=== PATIENT | female | born 1990 | race Caucasian/White ===

== ENCOUNTER 2019-08-15 14:07 | Emergency (ER) | payer OTHER, MEDICAID, SELFPAY ==
[2019-08-15 14:12] VITALS: BP 141/55; PULSE 77; RESP 15; TEMP 36.5; O2SAT 100; BMI 24.7
--- NOTE | 2019-08-15 14:32 | ED_ITS ---
HPI - Nausea/Vomiting/Diarrhea <VALARIE Dodd - Last Filed: 08/15/19 20:09> General Chief complaint: Nausea/Vomiting/Diarrhea Stated complaint: GI issues Time Seen by Provider: 08/15/19 14:11 Source: patient Mode of arrival: Ambulatory Limitations: no limitations History of Present Illness HPI Narrative: 29-year-old female with a history of anxiety in sports induced asthma, presents emergency department today complaining of intermittent abdominal cramping, loose watery stool, nausea, and acid reflux for the past 3 weeks. 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 She states she has anywhere from 2-9 episodes of stools a day that are watery and yellow. She denies any blood or mucus in her stools. She states she has been nauseated but has not vomited, her nausea increases after eating and her heartburn increases after e ating. Patient states she was on antibiotics 8 weeks ago for a urinary tract infection and she completed the course, she was on Bactrim, she did not have any problems with her stools after she finished a course of antibiotics. She states when she wakes up in the morning she feels short of breath for an hour or so and feels like this is contributed to postnasal drip that she still has from her URI a few weeks ago. Patient denies any abdominal pain, fevers, chills, chest pain, cough, dizziness, dysuria, vaginal discharge, or other concerns. Related Data Previous Rx's Medication Instructions Recorded metronidazole [Flagyl] 500 mg PO BID 5 Days #10 tab 08/15/19 Allergies Allergy/AdvReac Type Severity Reaction Status Date / Time No Known Drug Allergies Allergy Verified 08/15/19 14:16 Review of Systems <VALARIE Dodd - Last Filed: 08/15/19 20:09> Review of Systems Narrative: REVIEW OF SYSTEMS: GENERAL: Denies fever, chills, malaise, or wt. loss. HENT: No head trauma, sore throat, or dysphagia. EYES: No loss of vision, double vision, eye pain, or irritation. CARDIOVASCULAR: No chest pain, palpitations, or orthopnea. RESPIRATORY: No shortness of breath or cough. GASTROINTESTINAL: Complains of diarrhea, see HPI. GENITOURINARY: No flank pain, urinary incontinence, hesitancy, frequency, or dysuria. No vaginal discharge or dyspareunia. Denies concerns for STIs MUSCULOSKELETAL: No pain, weakness, or trauma. INTEGUMENTARY: No rash, lesions, or pruritus. NEURO: No numbness, tingling, memory loss, confusion, or headaches. PSYCH: No behavior or mood changes. Patient History <VALARIE Dodd - Last Filed: 08/15/19 20:09> Medical History Exercise-induced asthma (Acute) Social History Smoking Status: Unknown if ever smoked alcohol intake frequency: holidays/special occasions only Substance Use Type: does not use Exam <VALARIE Dodd - Last Filed: 08/15/19 20:09> Initial Vital Signs Initial Vital Signs: Vital Signs Temperature 97.7 F 08/15/19 14:12 Pulse Rate 77 08/15/19 14:12 Respiratory Rate 15 08/15/19 14:12 Blood Pressure 141/55 H 08/15/19 14:12 Pulse Oximetry 100 08/15/19 14:12 PHYSICAL EXAMINATION: GENERAL: Well groomed, alert, and cooperative. Answers questions promptly and appropriately. Vital signs noted. HENT: Normocephalic, atraumatic. Hearing intact. Oral mucosa is pink and moist. EYES: Conjunctiva pink, sclera white, no periorbital swelling. CARDIOVASCULAR: S1 and S2 sounds normal. Regular rate and rhythm, no murmurs, clicks, or bruits. No pedal edema. RESPIRATORY: Normal respiratory rate, trachea midline, airway patent. No stridor, nasal flaring or accessory muscle use. Lower lung joyce with diffuse expiratory wheezes, this improved after administration of a Duoneb. No rhonchi or crackles. GASTROINTESTINAL: Bowel sounds normoactive. Abdomen is soft and non-tender. No organomegaly, no palpable masses. GENITALURINARY: No flank tenderness. MUSCULOSKELETAL: Normal gait and coordination. Equal tone and mass bilaterally. EXTREMITIES: CMS intact, no pedal edema. SKIN: Warm, dry, soft, appropriate color for ethnicity. No lesions, rashes, or wounds. NEURO: Alert and Oriented X 3. Good coordination. No ataxia, or sensory deficits, or cognitive issues. PSYCH: Appropriate affect and mood. <Francois Cisse DO - Last Filed: 08/21/19 07:23> Initial Vital Signs Initial Vital Signs: Vital Signs Temperature 97.7 F 08/15/19 14:12 Pulse Rate 77 08/15/19 14:12 Respiratory Rate 15 08/15/19 14:12 Blood Pressure 141/55 H 08/15/19 14:12 Pulse Oximetry 100 08/15/19 14:12 Course <Joyce BlairVALARIE stovall - Last Filed: 08/15/19 20:09> Course Course Narrative: Patient was given a DuoNeb for expiratory wheezes, she denies any change in symptoms. Patient was given Zofran, NS, and pantoprazole for nausea and GERD, she reports feeling better after administration of fluids. Orders Ordered: Discontinued Medications Albuterol/Ipratropium (Duoneb) 3 ml INH NOW ONE Stop: 08/15/19 14:44 Last Admin: 08/15/19 15:16 Dose: 3 ml Documented by: FAUSTO Sodium Chloride (Normal Saline 0.9%) 1,000 mls @ 1,000 mls/hr IV BOLUS ONE Stop: 08/15/19 16:15 Last Infusion: 08/15/19 16:35 Dose: 0 mls/hr Documented by: Admin: 08/15/19 15:21 Dose: 1,000 mls/hr Documented by: FAUSTO Metronidazole (Metronidazole) 500 mg PO NOW ONE Stop: 08/15/19 18:20 Last Admin: 08/15/19 18:26 Dose: 500 mg Documented by: FAUSTO Ondansetron HCl (Zofran) 4 mg IV NOW ONE Stop: 08/15/19 14:34 Last Admin: 08/15/19 15:14 Dose: 4 mg Documented by: FAUSTO Pantoprazole Sodium (Protonix) 40 mg IV NOW ONE Stop: 08/15/19 14:34 Last Admin: 08/15/19 15:16 Dose: 40 mg Documented by: FAUSTO Consultations Consultation #1: Patient staffed with Dr. Cisse. Vital Signs Vital signs: Vital Signs - 8 hr 08/15/19 14:12 08/15/19 16:13 08/15/19 17:00 Temperature 97.7 F Pulse Rate 77 68 77 Respiratory Rate 15 16 16 Blood Pressure 141/55 H Blood Pressure [Left Arm] 166/67 H 128/78 Pulse Oximetry 100 99 98 08/15/19 18:00 08/15/19 18:52 Temperature Pulse Rate 65 67 Respiratory Rate 15 17 Blood Pressure 121/82 Blood Pressure [Left Arm] 132/76 Pulse Oximetry 99 99 <Francois Cisse DO - Last Filed: 08/21/19 07:23> Orders Ordered: Discontinued Medications Albuterol/Ipratropium (Duoneb) 3 ml INH NOW ONE Stop: 08/15/19 14:44 Last Admin: 08/15/19 15:16 Dose: 3 ml Documented by: FAUSTO Sodium Chloride (Normal Saline 0.9%) 1,000 mls @ 1,000 mls/hr IV BOLUS ONE Stop: 08/15/19 16:15 Last Infusion: 08/15/19 16:35 Dose: 0 mls/hr Documented by: Admin: 08/15/19 15:21 Dose: 1,000 mls/hr Documented by: FAUSTO Metronidazole (Metronidazole) 500 mg PO NOW ONE Stop: 08/15/19 18:20 Last Admin: 08/15/19 18:26 Dose: 500 mg Documented by: FAUSTO Ondansetron HCl (Zofran) 4 mg IV NOW ONE Stop: 08/15/19 14:34 Last Admin: 08/15/19 15:14 Dose: 4 mg Documented by: FAUSTO Pantoprazole Sodium (Protonix) 40 mg IV NOW ONE Stop: 08/15/19 14:34 Last Admin: 08/15/19 15:16 Dose: 40 mg Documented by: FAUSTO Vital Signs Vital signs: Vital Signs - 8 hr 08/15/19 14:12 08/15/19 16:13 08/15/19 17:00 Temperature 97.7 F Pulse Rate 77 68 77 Respiratory Rate 15 16 16 Blood Pressure 141/55 H Blood Pressure [Left Arm] 166/67 H 128/78 Pulse Oximetry 100 99 98 08/15/19 18:00 08/15/19 18:52 Temperature Pulse Rate 65 67 Respiratory Rate 15 17 Blood Pressure 121/82 Blood Pressure [Left Arm] 132/76 Pulse Oximetry 99 99 MDM - Nausea/Vomiting/Diarrhea <Joyce VALARIE Sanchez - Last Filed: 08/15/19 20:09> Medical Records Attestation: I reviewed the patient's medical records. Lab Data Attestation: I reviewed the patient's lab results. Result diagrams: 08/15/19 14:55 08/15/19 14:55 Labs: Lab Results 08/15/19 08/15/19 08/15/19 Range/Units 14:55 14:55 15:05 WBC 7.6 (4.5-11.0) X10^3/uL RBC 4.56 (4.0-5.2) X10^6/uL Hgb 13.7 (12.0-16.0) g/dL Hct 39.6 (36-46) % MCV 86.8 (80-100) fL MCH 29.9 (26-34) PG MCHC 34.5 (30-36) % RDW 13.1 (11.6-14.8) % Plt Count 320 (150-400) X10^3/uL Neut % (Auto) 66.6 (50-75) % Lymph % (Auto) 23.0 L (25-40) % Madison % (Auto) 8.0 (3-14) % Eos % (Auto) 1.8 L (2-4) % Baso % (Auto) 0.6 (0-2) % Neut # (Auto) 5100 (0196-0901) /uL Lymph # (Auto) 1800 (8454-0270) /uL Madison # (Auto) 600 (0-900) /uL Eos # (Auto) 100 (0-450) /uL Baso # (Auto) 0 (0-100) /uL Sodium 140 (137-145) mmol/L Potassium 3.4 (3.4-5.1) mmol/L Chloride 106 (98-107) mmol/L Carbon Dioxide 27 (22-32) mmol/L BUN 8 (7-17) mg/dL Creatinine 0.70 (0.52-1.04) mg/dL Estimated GFR > 60.0 (>60) mL/min BUN/Creatinine Ratio 11.4 (6-22) Glucose 89 (70-100) mg/dL Calcium 9.0 (8.4-10.2) mg/dL Total Bilirubin 0.3 (0.2-1.3) mg/dL AST 27 (14-36) IU/L ALT 28 (<35) IU/L Alkaline Phosphatase 61 (38-126) U/L Total Protein 6.6 (6.3-8.2) g/dL Albumin 4.2 (3.5-5.0) g/dL Globulin 2.4 (1.7-4.1) g/dL Albumin/Globulin Ratio 1.8 (1.0-2.8) Stl C. cayetanensis PCR Not detected (Not Detect) Stool Rotavirus (PCR) Not detected (Not Detect) Stool Adenovirus (PCR) Not detected (Not Detect) Stool Astrovirus (PCR) Not detected (Not Detect) Stool Cryptosporidium PCR Not detected (Not Detect) Stl E.coli Shiga Tox PCR Not detected (Not Detect) St Sh/Enteroin Ecoli PCR Not detected (Not Detect) Stool E coli O157 PCR Not Reportable Stl Enterotoxigenic E PCR Not detected (Not Detect) Stool EPEC (PCR) Not detected (Not Detect) Stl E. histolytica PCR Not detected (Not Detect) Stool Giardia Lamblia PCR Detected H (Not Detect) Stool Sapovirus (PCR) Not detected (Not Detect) Stl P. shigelloides PCR Not detected (Not Detect) St Y.enterocolitica PCR Not detected (Not Detect) Stool Vibrio (PCR) Not detected (Not Detect) Stl Vibrio cholerae PCR Not detected (Not Detect) Stl Enteroaggr Ecoli PCR Not detected (Not Detect) Stl Norovirus GI/GII PCR Not detected (Not Detect) Campylobacter (PCR) Not detected (Not Detect) C. difficile Tox (PCR) Not detected (Not Detect) Salmonella (PCR) Not detected (Not Detect) Point of Care Testing Test Results Negative Urine Dip Bedside Urine Glucose Negative Bedside Urine Bilirubin - Negative Bedside Urine Ketone - Negative Urine Specific Walker 1.010 Bedside Urine Occult Blood - Negative Bedside Urine pH 6.0 Bedside Urine Protein - Negative Bedside Urine Urobilinogen - Negative Bedside Urine Nitrite - Negative Bedside Urine Leukocytes - Negative Esterase MDM Narrative Medical decision making narrative: 29-year-old female presents emergency department for diarrhea for the past few weeks, she test positive for Giardia. Laboratory work is non-remarkable, no concern of systemic infection due to lack of fevers, tachycardia, increased white blood cells, or other systemic symptoms. Less likely appendicitis, cholecystitis, or pancreatitis due to lack of abdominal pain or vomiting.. Patient was given a dose of Flagyl in the emergency department and prescription was faxed. She was counseled extensively about hand hygiene in the spread of gardia. She was given a note for work, and instructed to not return until diarrhea has resolved. She was encouraged to follow up with her primary care provider in the next few weeks for re-evaluat ion. Return precautions given for worsening symptoms. <Francois Hazelrosi, DO - Last Filed: 08/21/19 07:23> Lab Data Labs: Lab Results 08/15/19 08/15/19 08/15/19 Range/Units 14:55 14:55 15:05 WBC 7.6 (4.5-11.0) X10^3/uL RBC 4.56 (4.0-5.2) X10^6/uL Hgb 13.7 (12.0-16.0) g/dL Hct 39.6 (36-46) % MCV 86.8 (80-100) fL MCH 29.9 (26-34) PG MCHC 34.5 (30-36) % RDW 13.1 (11.6-14.8) % Plt Count 320 (150-400) X10^3/uL Neut % (Auto) 66.6 (50-75) % Lymph % (Auto) 23.0 L (25-40) % Madison % (Auto) 8.0 (3-14) % Eos % (Auto) 1.8 L (2-4) % Baso % (Auto) 0.6 (0-2) % Neut # (Auto) 5100 (3232-2466) /uL Lymph # (Auto) 1800 (9197-8051) /uL Madison # (Auto) 600 (0-900) /uL Eos # (Auto) 100 (0-450) /uL Baso # (Auto) 0 (0-100) /uL Sodium 140 (137-145) mmol/L Potassium 3.4 (3.4-5.1) mmol/L Chloride 106 (98-107) mmol/L Carbon Dioxide 27 (22-32) mmol/L BUN 8 (7-17) mg/dL Creatinine 0.70 (0.52-1.04) mg/dL Estimated GFR > 60.0 (>60) mL/min BUN/Creatinine Ratio 11.4 (6-22) Glucose 89 (70-100) mg/dL Calcium 9.0 (8.4-10.2) mg/dL Total Bilirubin 0.3 (0.2-1.3) mg/dL AST 27 (14-36) IU/L ALT 28 (<35) IU/L Alkaline Phosphatase 61 (38-126) U/L Total Protein 6.6 (6.3-8.2) g/dL Albumin 4.2 (3.5-5.0) g/dL Globulin 2.4 (1.7-4.1) g/dL Albumin/Globulin Ratio 1.8 (1.0-2.8) Stl C. cayetanensis PCR Not detected (Not Detect) Stool Rotavirus (PCR) Not detected (Not Detect) Stool Adenovirus (PCR) Not detected (Not Detect) Stool Astrovirus (PCR) Not detected (Not Detect) Stool Cryptosporidium PCR Not detected (Not Detect) Stl E.coli Shiga Tox PCR Not detected (Not Detect) St Sh/Enteroin Ecoli PCR Not detected (Not Detect) Stool E coli O157 PCR Not Reportable Stl Enterotoxigenic E PCR Not detected (Not Detect) Stool EPEC (PCR) Not detected (Not Detect) Stl E. histolytica PCR Not detected (Not Detect) Stool Giardia Lamblia PCR Detected H (Not Detect) Stool Sapovirus (PCR) Not detected (Not Detect) Stl P. shigelloides PCR Not detected (Not Detect) St Y.enterocolitica PCR Not detected (Not Detect) Stool Vibrio (PCR) Not detected (Not Detect) Stl Vibrio cholerae PCR Not detected (Not Detect) Stl Enteroaggr Ecoli PCR Not detected (Not Detect) Stl Norovirus GI/GII PCR Not detected (Not Detect) Campylobacter (PCR) Not detected (Not Detect) C. difficile Tox (PCR) Not detected (Not Detect) Salmonella (PCR) Not detected (Not Detect) Point of Care Testing Test Results Negative Urine Dip Bedside Urine Glucose Negative Bedside Urine Bilirubin - Negative Bedside Urine Ketone - Negative Urine Specific Walker 1.010 Bedside Urine Occult Blood - Negative Bedside Urine pH 6.0 Bedside Urine Protein - Negative Bedside Urine Urobilinogen - Negative Bedside Urine Nitrite - Negative Bedside Urine Leukocytes - Negative Esterase Discharge Plan Departure Patient Disposition: Home Clinical Impression: Giardiasis Discharge Date/Time: 08/15/19 18:55 Instructions: DI for Giardiasis Activity Restrictions/Additional Instructions: Thank you for entrusting me with your care today. As discussed, you tested positive for Giardiasis. I have prescribed you metronidazole, you had your first dose today. Your prescription was sent to [facility] in [place]. Do not drink alcohol with this medication or it will make you vomit violently. Please wash your hands very frequently as this can spread. Follow up with your primary care provider in the next few weeks for re-evaluation of symptoms continue. Return emergency department for new or worsening symptoms such as uncontrollable vomiting, high fevers, chest pain, shortness of breath, or other concerns. Prescriptions: New metronidazole [Flagyl] 500 mg tablet 500 mg PO BID 5 Days Qty: 10 RF: 0 Stand Alone Forms: Work Release Note <Francois Cisse, DO - Last Filed: 08/21/19 07:23> Sign Out Provider Sign Out Attestation: Dr Cisse Co-Sign Statement: I was available for consultation during this patient's emergency department visit. This chart is signed by myself for administrative purposes only. I did not have direct contact with this patient during this visit. They were seen independently by the APC.
[2019-08-15 15:04] LABS: Add Manual Diff / Slide Review NO; Basophils Absolute Auto 0 /uL (0-100); Basophils Percent Auto 0.6 % (0-2); Eosinophils Absolute Auto 100 /uL (0-450); Eosinophils Percent Auto 1.8 % (2-4); Hematocrit 39.6 % (36-46); Hemoglobin 13.7 g/dL (12.0-16.0); Lymphocytes Absolute Auto 1800 /uL (1100-4500); Mean Corpuscular HGB Conc 34.5 % (30-36); Mean Corpuscular Hemoglobin 29.9 PG (26-34); Mean Corpuscular Volume 86.8 fL (80-100); Monocytes Absolute Auto 600 /uL (0-900); Neutrophils Absolute Auto 5100 /uL (1500-7000); Neutrophils Percent Auto 66.6 % (50-75); Platelet Count 320 X10^3/uL (150-400); Red Blood Cell Count 4.56 X10^6/uL (4.0-5.2); Red Cell Distribution Width 13.1 % (11.6-14.8); White Blood Cell Count 7.6 X10^3/uL (4.5-11.0)
[2019-08-15] MEDS: ONDANSETRON 4 MG/2 ML INJ IV (15:14)
[2019-08-15] MEDS: ALBUTEROL/IPRATROPIUM 3 ML AMPUL INH (15:16)
[2019-08-15] MEDS: PANTOPRAZOLE 40 MG VIAL IV (15:16)
[2019-08-15 15:17] LABS: Alanine Aminotransferase 28 IU/L (<35); Albumin 4.2 g/dL (3.5-5.0); Albumin Globulin Ratio 1.8 (1.0-2.8); Alkaline Phosphatase 61 U/L (38-126); Aspartate Aminotransferase 27 IU/L (14-36); BUN Creatinine Ratio 11.4 (6-22); Bilirubin Total 0.3 mg/dL (0.2-1.3); Blood Urea Nitrogen 8 mg/dL (7-17); Carbon Dioxide 27 mmol/L (22-32); Chloride 106 mmol/L (98-107); Estimated Glomerular Filt Rate > 60.0 mL/min (>60); Globulin 2.4 g/dL (1.7-4.1); Glucose 89 mg/dL (70-100); HEMOLYSIS < 15 (0-50); Potassium 3.4 mmol/L (3.4-5.1); Sodium 140 mmol/L (137-145); Total Protein 6.6 g/dL (6.3-8.2)
[2019-08-15] MEDS: SODIUM CHLORIDE 0.9% 1,000 ML 1000 ML IV (15:21)
[2019-08-15 16:13] VITALS: BP 166/67; PULSE 68; RESP 16; O2SAT 99
[2019-08-15 17:00] VITALS: BP 128/78; PULSE 77; RESP 16; O2SAT 98
[2019-08-15 17:46] LABS: Adenovirus F 40/41 Not Detected (Not Detect); Astrovirus Not Detected (Not Detect); Campylobacter Not Detected (Not Detect); Clostridium difficile toxin AB Not Detected (Not Detect); Cryptosporidium Not Detected (Not Detect); Cyclospora cayetanensis Not Detected (Not Detect); Entamoeba histolytica Not Detected (Not Detect); Enteroaggregative E.coli Not Detected (Not Detect); Enteropathogenic E.coli Not Detected (Not Detect); Enterotoxigenic E.coli It/st Not Detected (Not Detect); Norovirus GI/GII Not Detected (Not Detect); Plesiomonsa shigelloides Not Detected (Not Detect); Rotavirus A Not Detected (Not Detect); Salmonella Not Detected (Not Detect); Sapovirus Not Detected (Not Detect); Shiga-like toxin-prod E.coli Not Detected (Not Detect); Shigella/Enteroinvasive E.coli Not Detected (Not Detect); Vibrio Not Detected (Not Detect); Vibrio cholerae Not Detected (Not Detect); Yersinia enterocolitica Not Detected (Not Detect)
[2019-08-15 18:00] VITALS: BP 132/76; PULSE 65; RESP 15; O2SAT 99
[2019-08-15] MEDS: metroNIDAZOLE 250 MG TABLET 500 MG PO (18:26)
[2019-08-15 18:52] VITALS: BP 121/82; PULSE 67; RESP 17; O2SAT 99
[2019-08-16 08:13] LABS: Giardia lamblia Detected (Not Detect)
== END 2019-08-15 18:55 | disposition home or self-care (01) ==
PROVIDERS: Emergency Provider Nurse Practitioner
DX: A07.1 Giardiasis [lambliasis] (principal)
CPT/HCPCS: 80053; 81003; 81025; 85025; 87507; 96361; 96374; 96375; 99283; 99284; C9113; J2405